=== PATIENT | female | born 1980 ===

== ENCOUNTER 2021-12-10 08:13 | Outpatient (CLI) | payer OTHER ==
--- NOTE | 2021-12-10 16:16 | MRI Report ---
PROCEDURE: Lumbar Spine W/O INDICATIONS: ANESTHESIA OF SKIN TECHNIQUE: Noncontrast sagittal T1 spin echo and T2 fast echo, sagittal STIR, axial T1 and T2 fast spin echo thr ough the lumbar spine. In cases with scoliosis, additional coronal T2 fast spin echo may be performe d. COMPARISON: None. FINDINGS: Image quality: Motion artifact is noted. Alignment and Curvature: There is normal bony alignment . Bone Marrow: Marrow is of normal overall signal. No acute vertebral body compression fractures. Spinal Cord: Conus medullaris terminates at the T12-L1 level. Visualized cord demonstrates normal s ignal and size. Paraspinous Soft Tissues: No paravertebral masses. This patient has transitional anatomy. For the purposes of this examination, the level with last well -developed disc space is considered to be L5-S1. T12-L1: Normal in appearance. L1-L2: No significant abnormality is seen. L2-L3: The disc height and disc signal are relatively well-preserved. Mild disc bulge is seen, wit h a central disc protrusion. Mild to moderate facet hypertrophy is seen. There is at least moderate l eft-sided and moderate right-sided neuroforaminal narrowing. Moderate central canal narrowing is see n. L3-L4: The disc height and disc signal are well preserved. Mild disc bulge is seen. A superimpose d central disc protrusion is seen. Mild facet hypertrophy is seen. Moderate bilateral neuroforamina l narrowing can be seen, left worse than right. Minimal central canal narrowing is seen. L4-L5: Mild loss of disc height and disc signal are seen. Mild disc bulge is seen, with a central d isc protrusion. There is also a left foraminal disc protrusion. Annular fissures can be seen posterio rly. Moderate facet hypertrophy is seen. Moderate bilateral neural foraminal narrowing is seen. Mild central canal narrowing is seen. L5-S1: There is a transitional disc seen at this level. No significant neural foraminal or central canal narrowing can be seen. IMPRESSION: Multiple levels of lumbar spine degenerative change are seen, which are overall worst at the L4-L5 level. Transitional lumbar anatomy noted. Reviewed by: Naresh Rodríguez MD on 12/10/2021 3:14 PM JESUSITA Approved by: Naresh Rodríguez MD on 12/10/2021 3:14 PM JESUSITA Station ID: [id number]
== END 2021-12-10 08:14 | disposition home or self-care (01) ==
LOC: DI 08:13
PROVIDERS: ATTEND Student in an Organized Health Care Education/Training Program
DX: R20.0 Anesthesia of skin (principal); M51.26 Other intervertebral disc displacement, lumbar region; M47.816 Spondylosis without myelopathy or radiculopathy, lumbar region; M48.061 Spinal stenosis, lumbar region without neurogenic claudication

== ENCOUNTER 2022-03-15 13:13 | Emergency (ER) | payer OTHER ==
--- NOTE | 2022-03-15 13:57 | XRAY Report ---
PROCEDURE: Knee 4 View RT INDICATIONS: Trauma TECHNIQUE: 3 views of the right knee(s) were acquired. COMPARISON: None. FINDINGS: Bones: No fractures or dislocations. No suspicious bony lesions. Soft tissues: No joint effusion. No suspicious soft tissue calcifications. IMPRESSION: No evidence acute bony abnormality of the right knee. If clinical suspicion and/or symptoms persist, further assessment with repeat plain films or advanced imaging (e.g., CT, MRI, or bone scan) may be helpful for further assessment. Reviewed by: Aidan Rhodes MD on 03/15/2022 1:56 PM PST Approved by: Aidan Rhodes MD on 03/15/2022 1:56 PM PST Station ID: [id number]
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
[2022-03-15 17:31] VITALS: BP 130/78
== END 2022-03-15 17:15 | disposition home or self-care (01) ==
LOC: ED 13:13
DX: S80.01XA Contusion of right knee, initial encounter (principal); S86.911A Strain of unspecified muscle(s) and tendon(s) at lower leg level, right leg, initial encounter; Y04.2XXA Assault by strike against or bumped into by another person, initial encounter
CPT/HCPCS: 99282; 99283

== ENCOUNTER 2023-08-24 10:24 | Emergency (ER) | payer OTHER ==
[2023-08-24 11:22] VITALS: BP 116/84; O2SAT 99
--- NOTE | 2023-08-24 11:58 | XRAY Report ---
PROCEDURE: Ribs w/PA Chest 3+V RT INDICATIONS: trauma, SOA TECHNIQUE: 2 views of the ribs were acquired, along with a single view chest. COMPARISON: None. FINDINGS: Surgical changes and devices: None. Bones and chest wall: No fractures or dislocations. No suspicious bony lesions. Overlying soft tis sues appear unremarkable. Lungs and pleura: No pleural effusions or pneumothorax. Lungs appear clear. Mediastinum: Mediastinal contours appear normal. Heart size is normal. IMPRESSION: No displaced rib fracture or pneumothorax. No acute cardiopulmonary disease process. Reviewed by: Thi Grant MD, PhD on 08/24/2023 11:57 AM PDT Approved by: Thi Grant MD, PhD on 08/24/2023 11:57 AM PDT Station ID: [id number]
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
[2023-08-24] MEDS: ACETAMINOPHEN 500 MG TABLET PO STA (13:50)
[2023-08-24] MEDS: IBUPROFEN 800 MG TABLET PO STA (13:51)
[2023-08-24] MEDS: LIDOCAINE PATCH 5% TOP STA (13:54)
== END 2023-08-24 13:58 | disposition home or self-care (01) ==
LOC: ED 10:24
DX: S20.212A Contusion of left front wall of thorax, initial encounter (principal); W01.0XXA Fall on same level from slipping, tripping and stumbling without subsequent striking against object, initial encounter; F17.200 Nicotine dependence, unspecified, uncomplicated
CPT/HCPCS: 71101; 99283; 99284; A9270